=== PATIENT | male | born 2000 | race Caucasian/White ===

== ENCOUNTER → 2022-11-08 | Outpatient (REF) | payer OTHER ==
[~2022-11-08] MED LIST: ADDE20CA3 PO; AMOX875T PO; ZOLO25TA PO
== END ==
LOC: M LAB REF 16:18
PROVIDERS: ATTEND Physician Assistant
DX: J02.9 Acute pharyngitis, unspecified (principal)

== ENCOUNTER 2022-11-09 22:36 | Emergency (ER) | payer OTHER ==
[~2022-11-09] VITALS: Ht 177.8 cm; Wt 94.7 kg
[2022-11-09] MEDS ORDERED: ADDE20CA3 PO (22:45)
[2022-11-09] MEDS ORDERED: ZOLO25TA PO (22:45)
[2022-11-09] MEDS ORDERED: AMOX875T PO (22:47)
[2022-11-10] MEDS ORDERED: ISOVUE-370 76% 100ML VIAL As Ordered ONE (01:04)
[2022-11-10 01:26] LABS: BASO # 0.1 10^3/uL (0.0-0.2); BASO % 0.6 % (0.0-1.0); EOS # 0.4 10^3/uL (0.0-0.5); EOS % 4.1 % (0.0-3.0); HEMATOCRIT 48.6 % (42.0-52.0); LYMPH # 3.6 10^3/uL (1.5-5.0); LYMPH % 36.4 % (24.0-44.0); MEAN CORPUSCULAR HEMOGLOBIN 31.4 pg (27.0-33.0); MEAN CORPUSCULAR VOLUME 84.7 fl (80.0-96.0); MONO # 1.4 10^3/uL (0.0-0.8); NEUTROPHILS # 4.4 10^3/uL (1.5-8.5); NEUTROPHILS % 44.5 % (36.0-66.0); PLATELET COUNT, AUTOMATED 302 10^3/uL (150-450); RED BLOOD COUNT 5.74 10^6/uL (4.30-6.10); WHITE BLOOD COUNT 9.8 10^3/uL (4.0-10.0)
[2022-11-10 02:09] LABS: BLOOD UREA NITROGEN 10 MG/DL (9-23); CALCIUM LEVEL 9.5 MG/DL (8.5-10.1); CARBON DIOXIDE LEVEL 26 MMOL/L (20-31); CHLORIDE LEVEL 104 MMOL/L (98-107); CREATININE FOR GFR 0.82 MG/DL (0.70-1.30); GLOMERULAR FILTRATION RATE > 60.0 (>60); GLUCOSE, FASTING 86 MG/DL (60-100); SODIUM LEVEL 138 MMOL/L (136-145)
[2022-11-10 02:47] LABS: GC DNA AMPLIFICATION NEGATIVE (NEGATIVE)
[2022-11-10 05:03] VITALS: BP 142/74
[2022-11-10] MEDS ORDERED: DALBAVANCIN 1,500 MG in D5W 250 ML IV ONE (05:20)
== END 2022-11-10 06:46 | disposition home or self-care (01) ==
LOC: M ED 22:36
DX: L03.314 Cellulitis of groin (principal); F90.9 Attention-deficit hyperactivity disorder, unspecified type
CPT/HCPCS: 74177; 80048; 81001; 85025; 87661; 87810; 87850; 96365; 99284; J0875; Q9967

== ENCOUNTER 2023-07-22 20:28 | Emergency (ER) | payer OTHER ==
[~2023-07-22] VITALS: Ht 177.8 cm; Wt 96.2 kg
[2023-07-22] MEDS ORDERED: ZOLO50TA PO (20:37)
[2023-07-23] MEDS ORDERED: LORazepam 1 MG TAB PO ONE (01:50)
[2023-07-23 03:30] VITALS: BP 130/63; TEMP 98.2; O2SAT 98
[2023-07-23] MEDS ORDERED: NAPROXEN 250 MG TAB PO ONE (03:40)
[2023-07-23] MEDS ORDERED: NEUR300C PO (03:40)
[2023-07-23] MEDS ORDERED: NAPR-837 PO (03:40)
[2023-07-23] MEDS ORDERED: GABAPENTIN 300 MG CAP PO ONE (03:40)
== END 2023-07-23 04:02 | disposition home or self-care (01) ==
LOC: M ED 20:28
DX: F41.0 Panic disorder [episodic paroxysmal anxiety] (principal); R20.2 Paresthesia of skin; R00.0 Tachycardia, unspecified; I45.19 Other right bundle-branch block; I25.2 Old myocardial infarction; F32.A Depression, unspecified; F41.1 Generalized anxiety disorder; F90.9 Attention-deficit hyperactivity disorder, unspecified type; Z79.899 Other long term (current) drug therapy; Z79.891 Long term (current) use of opiate analgesic; Z79.1 Long term (current) use of non-steroidal anti-inflammatories (NSAID)

== ENCOUNTER → 2024-03-27 | Outpatient (REF) ==
[~2024-03-27] MED LIST changes: +NAPR-837 PO; +NEUR300C PO; +ZOLO50TA PO
== END ==
LOC: M PLAIMG 09:08
PROVIDERS: ATTEND Internal Medicine
DX: R06.02 Shortness of breath (principal)

== ENCOUNTER 2025-05-27 20:02 | Emergency (ER) | payer OTHER ==
[~2025-05-27] VITALS: Ht 177.8 cm; Wt 97.2 kg
[2025-05-27 20:27] VITALS: BP 140/83; TEMP 96.7; O2SAT 96
[2025-05-27 21:05] LABS: PLATELET COUNT, AUTOMATED 425 10^3/uL (150-450)
[2025-05-27 21:07] LABS: AMPHETAMINES LEVEL URINE NEGATIVE (NEGATIVE); BARBITURATES URINE NEGATIVE (NEGATIVE); BENZODIAZEPINES URINE NEGATIVE (NEGATIVE); COCAINE METABOLITE URINE NEGATIVE (NEGATIVE)
[2025-05-27 21:08] LABS: METHADONE URINE NEGATIVE (NEGATIVE); OPIATES URINE NEGATIVE (NEGATIVE); PHENCYCLIDINE URINE NEGATIVE (NEGATIVE)
[2025-05-27 21:10] LABS: CANNABINOIDS URINE POSITIVE (NEGATIVE); ETHYL ALCOHOL (ETHANOL) 0.009 % (0.000-0.010)
[2025-05-27] MEDS: LORazepam 1 MG TAB PO STA (21:10)
[2025-05-27 21:12] LABS: ALT/SGPT 68 U/L (7.0-40); AST/SGOT 25 U/L (<34); CALCIUM LEVEL 10.9 MG/DL (8.5-10.1); CARBON DIOXIDE LEVEL 24 MMOL/L (20-31); CHLORIDE LEVEL 101 MMOL/L (98-107); CREATININE FOR GFR 0.99 MG/DL (0.70-1.30); GLOMERULAR FILTRATION RATE > 90.0 (>60); POTASSIUM SERUM 4.0 MMOL/L (3.5-5.1); SALICYLATE LEVEL < 3.0 MG/DL (<30); SODIUM LEVEL 140 MMOL/L (136-145)
[2025-05-28] MEDS ORDERED: ADDE10CA3 PO (13:30)
[2025-05-28] MEDS ORDERED: BUSP10TA PO (13:30)
[2025-05-28] MEDS ORDERED: HYDR-643 PO (13:33)
[2025-05-28] MEDS ORDERED: HYDR12.55 PO (13:33)
[2025-05-28] MEDS ORDERED: LISI2.5T9 PO (13:33)
== END 2025-05-27 22:44 | disposition home or self-care (01) ==
LOC: M ED 20:02
DX: F41.9 Anxiety disorder, unspecified (principal); F32.A Depression, unspecified; Z79.899 Other long term (current) drug therapy

== ENCOUNTER 2025-05-28 13:22 | Emergency (ER) | payer OTHER ==
[~2025-05-28] VITALS: Ht 177.8 cm; Wt 95.7 kg
[2025-05-28] MEDS ORDERED: BUSP10TA PO (13:30)
[2025-05-28] MEDS ORDERED: ADDE10CA3 PO (13:30)
[2025-05-28] MEDS ORDERED: LISI2.5T9 PO (13:33)
[2025-05-28] MEDS ORDERED: HYDR12.55 PO (13:33)
[2025-05-28] MEDS ORDERED: HYDR-643 PO (13:33)
[2025-05-28] MEDS: ALPRAZolam 0.5 MG TAB PO ONE (15:27)
[2025-05-28 16:53] LABS: ETHYL ALCOHOL (ETHANOL) < 0.003 % (0.000-0.010)
[2025-05-28 16:55] LABS: ALT/SGPT 75 U/L (7.0-40); AST/SGOT 34 U/L (<34); CALCIUM LEVEL 9.9 MG/DL (8.5-10.1); CARBON DIOXIDE LEVEL 29 MMOL/L (20-31); CHLORIDE LEVEL 98 MMOL/L (98-107); CREATININE FOR GFR 1.34 MG/DL (0.70-1.30); GLOMERULAR FILTRATION RATE 74.5 (>60); POTASSIUM SERUM 4.5 MMOL/L (3.5-5.1); SODIUM LEVEL 140 MMOL/L (136-145)
[2025-05-28 17:51] LABS: PLATELET COUNT, AUTOMATED 394 10^3/uL (150-450)
[2025-05-28] MEDS: NS (Normal Saline) 0.9% 1,000 ML IV ONE (18:09)
[2025-05-28 18:33] LABS: BARBITURATES URINE NEGATIVE (NEGATIVE); COCAINE METABOLITE URINE NEGATIVE (NEGATIVE); METHADONE URINE NEGATIVE (NEGATIVE); OPIATES URINE NEGATIVE (NEGATIVE); PHENCYCLIDINE URINE NEGATIVE (NEGATIVE)
[2025-05-28 18:34] LABS: AMPHETAMINES LEVEL URINE POSITIVE (NEGATIVE); BENZODIAZEPINES URINE POSITIVE (NEGATIVE); CANNABINOIDS URINE POSITIVE (NEGATIVE)
[2025-05-28 19:26] VITALS: BP 104/62; TEMP 98.5; O2SAT 98
== END 2025-05-28 19:27 | disposition home or self-care (01) ==
LOC: M ED 13:22
DX: R10.9 Unspecified abdominal pain (principal); F41.9 Anxiety disorder, unspecified; Z79.899 Other long term (current) drug therapy

== ENCOUNTER 2025-05-30 11:51 | Inpatient (IN) | payer OTHER ==
[~2025-05-30] VITALS: Ht 177.8 cm; Wt 96.7 kg
[~2025-05-30 11:51] MED LIST changes: +ADDE10CA3 PO; +BUSP10TA PO; +HYDR-643 PO; +HYDR12.55 PO; +LISI2.5T9 PO
[2025-05-30 12:50] LABS: BARBITURATES URINE NEGATIVE (NEGATIVE); BENZODIAZEPINES URINE NEGATIVE (NEGATIVE); COCAINE METABOLITE URINE NEGATIVE (NEGATIVE); METHADONE URINE NEGATIVE (NEGATIVE); OPIATES URINE NEGATIVE (NEGATIVE); PHENCYCLIDINE URINE NEGATIVE (NEGATIVE)
[2025-05-30 12:56] LABS: AMPHETAMINES LEVEL URINE POSITIVE (NEGATIVE); CANNABINOIDS URINE POSITIVE (NEGATIVE)
[2025-05-30 13:29] LABS: ETHYL ALCOHOL (ETHANOL) < 0.003 % (0.000-0.010)
[2025-05-30 13:31] LABS: SALICYLATE LEVEL < 3.0 MG/DL (<30)
[2025-05-30 15:29] LABS: PLATELET COUNT, AUTOMATED 512 10^3/uL (150-450)
[2025-05-30] MEDS ORDERED: HOME MED LIST COMPLETE! XX SCH (15:55)
[2025-05-30 17:04] VITALS: BP 143/78; TEMP 97.1; O2SAT 99
[2025-05-30] MEDS ORDERED: MAALOX 30 ML SUSP *UDC PO PRN (17:50)
[2025-05-30] MEDS ORDERED: ACETAMINOPHEN 325 MG TAB PO PRN (17:50)
[2025-05-30] MEDS ORDERED: MOM 30 ML SUSPENSION UDC PO PRN (17:50)
[2025-05-30] MEDS: IBUPROFEN 400 MG TAB PO PRN (18:04)
[2025-05-30 18:23] LABS: CALCIUM LEVEL 10.9 MG/DL (8.5-10.1); CARBON DIOXIDE LEVEL 31.5 MMOL/L (20-31); CHLORIDE LEVEL 95.3 MMOL/L (98-107); CREATININE FOR GFR 1.07 MG/DL (0.70-1.30); GLOMERULAR FILTRATION RATE > 90.0 (>60); POTASSIUM SERUM 4.4 MMOL/L (3.5-5.1); SODIUM LEVEL 141 MMOL/L (136-145)
[2025-05-30] MEDS: traZODone 50 MG TAB PO PRN (20:41)
[2025-05-30] MEDS: NICOTINE 14 MG/24 HR TRANSDERMAL TD PRN (22:20)
[2025-05-31 06:23] VITALS: BP 136/65; TEMP 97.8; O2SAT 100
[2025-05-31 18:36] VITALS: BP 134/79; TEMP 97.3; O2SAT 96
[2025-06-01 07:02] VITALS: BP 153/83; TEMP 97.4; O2SAT 100
[2025-06-01 08:16] VITALS: BP 131/80
[2025-06-01] MEDS: NICOTINE 14 MG/24 HR TRANSDERMAL TD SCH (08:19)
[2025-06-01 16:17] VITALS: BP 137/72; TEMP 97.5; O2SAT 96
[2025-06-01] MEDS: MIRTAZAPINE 7.5 MG PER 1/2 TABLET PO SCH (20:10)
[2025-06-02 06:41] VITALS: BP 125/85; TEMP 97.8; O2SAT 97
[2025-06-02 08:12] VITALS: BP 150/88
[2025-06-02 08:14] VITALS: BP 150/88
[2025-06-02] MEDS ORDERED: HYDR-643 PO (08:37)
[2025-06-02] MEDS ORDERED: MIRT-10 PO (08:37)
== END 2025-06-02 16:41 | disposition home or self-care (01) | DRG 885 ==
LOC: M ED 11:51 → M ED INP 15:05 → M PSY 17:00
PROVIDERS: ADMIT Psychiatry & Neurology Addiction Psychiatry; ATTEND Psychiatry & Neurology Addiction Psychiatry
DX: F33.1 Major depressive disorder, recurrent, moderate (principal); R45.851 Suicidal ideations; F43.10 Post-traumatic stress disorder, unspecified; F41.1 Generalized anxiety disorder; F90.9 Attention-deficit hyperactivity disorder, unspecified type; F41.0 Panic disorder [episodic paroxysmal anxiety]; F17.290 Nicotine dependence, other tobacco product, uncomplicated; I10 Essential (primary) hypertension; E86.0 Dehydration; Z79.899 Other long term (current) drug therapy; Z56.0 Unemployment, unspecified; Z65.8 Other specified problems related to psychosocial circumstances